=== PATIENT | male | born 1965 ===

== ENCOUNTER 2017-03-12 01:20 | Outpatient (CLI) | payer BC | END 2017-03-12 23:59 | disposition home or self-care (01) | LOC: DIABETIC 01:20 | PROVIDERS: ATTEND Specialist | DX: E11.65 Type 2 diabetes mellitus with hyperglycemia (principal) | CPT/HCPCS: G0108 ==

== ENCOUNTER 2017-06-17 02:44 | Outpatient (CLI) | payer BC | END 2017-06-17 23:59 | disposition home or self-care (01) | LOC: DIABETIC 02:44 | PROVIDERS: ATTEND Specialist | DX: E11.65 Type 2 diabetes mellitus with hyperglycemia (principal) | CPT/HCPCS: G0108 ==